=== PATIENT | male | born 1950 | race Caucasian/White ===

== ENCOUNTER 2016-12-21 04:51 | Emergency (ER) | payer MEDICARE, BC ==
[2016-12-21] MEDS ORDERED: AMIODARONE HCL200 M1 PO (05:10)
[2016-12-21] MEDS ORDERED: AMILORIDE HCL5 M1 PO (05:10)
[2016-12-21] MEDS ORDERED: ACETYLCYST200 MG/1 M INH (05:10)
[2016-12-21] MEDS ORDERED: ASPIRIN81 M1 PO (05:11)
[2016-12-21] MEDS ORDERED: FLUDROCORTISON0.1 M1 PO (05:13)
[2016-12-21] MEDS ORDERED: FLUTICASONE P15.8 ML (05:14)
[2016-12-21] MEDS ORDERED: MAGNESIUM OXID400 M1 PO (05:15)
[2016-12-21] MEDS ORDERED: LASIX40 M1 PO (05:15)
[2016-12-21] MEDS ORDERED: MIDODRINE HCL10 M1 PO (05:27)
[2016-12-21] MEDS ORDERED: SINGULAIR10 M1 PO (05:28)
[2016-12-21] MEDS ORDERED: MUCINEX600 M1 PO (05:29)
[2016-12-21] MEDS ORDERED: ONCE DAILY1 EACH PO (05:29)
[2016-12-21] MEDS ORDERED: PROTONIX40 M2 PO (05:30)
[2016-12-21] MEDS ORDERED: POTASSIUM CHLO20 ME3 PO (05:30)
[2016-12-21] MEDS ORDERED: SILDENAFIL20 M2 PO (05:31)
[2016-12-21] MEDS ORDERED: PREDNISONE10 M1 PO (05:31)
[2016-12-21] MEDS ORDERED: STOOL SOFTENER250 M2 PO (05:32)
[2016-12-21] MEDS ORDERED: EFFEXOR XR75 M1 PO (05:32)
[2016-12-21] MEDS ORDERED: COUMADIN1 M1 PO (05:33)
[2016-12-21] MEDS ORDERED: TYLENOL325 M2 PO (05:34)
[2016-12-21] MEDS ORDERED: MILK OF MAGNESIA PO (05:35)
[2016-12-21] MEDS ORDERED: XANAX0.5 M1 PO (05:35)
[2016-12-21] MEDS ORDERED: POLYETHYLENE G255 G1 PO (05:37)
[2016-12-21] MEDS ORDERED: PROAIR HFA8.5 GM INH (05:37)
[2016-12-21] MEDS ORDERED: ULTRAM50 M1 PO (05:38)
[2016-12-21] MEDS ORDERED: AMBIEN5 M1 PO (05:39)
[2016-12-21 05:41] LABS: BASO % 0.9 % (0-2); BASO ABSOLUTE COUNT 0.1 tho/cmm (0.0-0.2); EOS % 6.6 % (0-7); EOSINOPHIL ABSOLUTE COUNT 0.7 tho/cmm (0.0-0.7); HCT-HEMATOCRIT 27.4 % (36.0-53.5); HGB-HEMOGLOBIN 8.5 gm/dl (13.5-17.0); LYMPH % 14.7 % (20-45); LYMPH ABSOLUTE COUNT 1.5 tho/cmm (0.8-4.5); MCH (MEAN CORPUSCULAR HGB) 27.1 pg (28.0-32.0); MCV (MEAN CELL VOLUME) 87.3 fl (82.0-96.0); MEAN PLATELET VOLUME 9.4 cmc (9.4-12.4); MONOCYTE ABSOLUTE COUNT 1.5 tho/cmm (0.0-1.2); NEUTROPHIL ABSOLUTE COUNT 6.3 tho/cmm (1.6-8.0); NEUTROPHIL-AUTOMATED 6.3 tho/cmm (1.6-8.0); NEUTROPHILS % 62.8 % (40-80); PLATELET COUNT 508 tho/cmm (150-450); RED BLOOD COUNT 3.14 mil/cmm (4.40-5.70); RED CELL DISTRIBUTION WIDTH 16.7 % (12.4-16.4); WHITE BLOOD COUNT 10.1 tho/cmm (4.0-10.0)
== END 2016-12-21 08:15 ==
LOC: EDMED 04:51
PROVIDERS: Emergency Medicine
PROC: 0HQ1XZZ Repair Face Skin, External Approach (ICD-10-PCS; principal; 2016-12-21)
DX: S09.90XA Unspecified injury of head, initial encounter (principal); S01.111A Laceration without foreign body of right eyelid and periocular area, initial encounter; D64.9 Anemia, unspecified; Z91.81 History of falling; W06.XXXA Fall from bed, initial encounter; Y92.238 Other place in hospital as the place of occurrence of the external cause; J90 Pleural effusion, not elsewhere classified